=== PATIENT | female | born 2005 | race Caucasian/White ===

== ENCOUNTER 2025-03-01 14:35 | Emergency (ER) | payer SELFPAY | END 2025-03-01 17:15 | disposition home or self-care (01) | LOC: MW.ED 14:35 | DX: J06.9 Acute upper respiratory infection, unspecified (principal); Z75.3 Unavailability and inaccessibility of health-care facilities; Z88.0 Allergy status to penicillin; Z88.8 Allergy status to other drugs, medicaments and biological substances; Z91.018 Allergy to other foods; Z79.899 Other long term (current) drug therapy | CPT/HCPCS: 71045; 71045-26; 99283; 99284 ==

== ENCOUNTER 2025-03-02 20:27 | Emergency (ER) | payer SELFPAY | END 2025-03-02 22:06 | disposition home or self-care (01) | LOC: MW.ED 20:27 | DX: L30.9 Dermatitis, unspecified (principal); Z88.0 Allergy status to penicillin; Z88.8 Allergy status to other drugs, medicaments and biological substances; Z91.018 Allergy to other foods; Z79.899 Other long term (current) drug therapy; Z75.3 Unavailability and inaccessibility of health-care facilities | CPT/HCPCS: 99282; 99283 ==